=== PATIENT | female | born 1965 | race Asian ===

== ENCOUNTER 2017-10-24 10:53 | Day surgery (SDC) | payer OTHER ==
[~2017-10-24 10:53] MED LIST: Buffered Lidocaine 0.9% SYRIN* 5 ML/SYR SYRINGE INTRADERM ONE; Dexamethasone IV* 4 MG/ML 1 ML (4 MG) IV SLOW PU ONE; Famotidine IV* 10 MG/ML 2 ML (20 mg) IV ONE; Ondansetron ODT TAB* 4 MG PO ONE
[2017-10-24] MEDS ORDERED: ceFAZolin 2 GM PREMIX (*) 2 GM/50 ML BAG IVPB ONE (10:56)
[2017-10-24] MEDS ORDERED: Ondansetron ODT TAB* 4 MG ONE (10:56)
[2017-10-24] MEDS ORDERED: Famotidine IV* 10 MG/ML 2 ML (20 mg) ONE (10:56)
[2017-10-24] MEDS ORDERED: Dexamethasone IV* 4 MG/ML 1 ML (4 MG) ONE (10:57)
[2017-10-24] MEDS ORDERED: Midazolam* 1 MG/ML 5 ML VIAL (5 MG) ONE (11:48)
[2017-10-24] MEDS ORDERED: fentaNYL* 50 MCG/ML 2 ML VIAL (100 MCG VIAL) ONE ×2 (11:48→13:37)
[2017-10-24] MEDS ORDERED: Propofol* 10 MG/ML 20 ML BTL IV PUSH ONE (11:48)
[2017-10-24] MEDS ORDERED: EPINEPHRINE 1 MG/ML 1 ML VIAL ONE (12:43)
[2017-10-24] MEDS ORDERED: ROPIVACAINE 5 MG/ML 30 ML BTL (0.5%) ONE (12:57)
[2017-10-24] MEDS ORDERED: Naloxone* 0.4 MG/ML 1 ML VIAL IV PRN (14:04)
[2017-10-24] MEDS ORDERED: Ondansetron INJ* 2 MG/ML VIAL IV PRN (14:04)
[2017-10-24] MEDS ORDERED: fentaNYL* 50 MCG/ML 2 ML VIAL (100 MCG VIAL) IV PRN (14:04)
[2017-10-24] MEDS ORDERED: HYDROmorphone INJ* 1 MG/ML CARPUJECT SYRINGE IV PRN (14:04)
[2017-10-24] MEDS ORDERED: oxyCODONE/Acetamin 5/325 MG* TAB PO PRN (14:04)
[2017-10-24] MEDS ORDERED: DiMENhydriNATE IV* 50 MG/ML VIAL IV PUSH PRN (14:04)
[2017-10-24 16:34] VITALS: BP 134/86
--- NOTE | 2017-10-28 22:15 | OP ---
DATE OF OPERATION: 10/24/17 - [facility] DATE OF : 69 SURGEON: Delroy Lin MD BUTTON PUNCHER: HARSH Toth. A physician workforce development assistant was required for the length of the procedure for help with positioning, instrumentation, and closure. ANESTHESIOLOGIST: Zach Dumont MD ANESTHESIA: General anesthesia, regional interscalene block anesthesia. PRE-OP DIAGNOSES: 1. Left shoulder adhesive capsulitis, traumatic. 2. Left shoulder subacromial bursitis and subacromial impingement. 3. Left shoulder acromioclavicular joint arthritis. POST-OP DIAGNOSES: 1. Left shoulder adhesive capsulitis, traumatic. 2. Left shoulder subacromial bursitis and minimal subacromial impingement. 3. Left shoulder acromioclavicular joint arthritis. OPERATIVE PROCEDURE: 1. Left shoulder evaluation under anesthesia. 2. Left shoulder manipulation under anesthesia. 3. Left shoulder lysis of adhesions and extensive debridement, capsular release. 4. Left shoulder subacromial decompression, arthroscopic. 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 She sustained an injury at work in January of 2017, 9 months preoperatively. The patient responded insufficiently to nonoperative management and so we opted for surgical management. Preoperatively, we discussed the importance of postoperative physical therapy to maintain the gains we obtained in terms of range of motion. The patient's limited range of motion and shoulder pain continued to significantly limit her preoperatively. I told the patient that as I would be arthroscoping the shoulder, I would assess the biceps, although the biceps was not a clear pain generator in this patient. The patient told me that she would prefer open tenodesis if biceps treatment were required. ANTIBIOTICS: Ancef 2 g IV. IV FLUIDS: 1100 cc crystalloid. SKIN TO SKIN TIME: 62 minutes. ARTHROSCOPIC FLUID USED: 5.5 bags, each with 3 L of saline, for a total of 16.5 L. COMPLICATIONS: None. SPECIMEN: None. IMPLANTS: None. ESTIMATED BLOOD LOSS: Minimal. DESCRIPTION OF PROCEDURE: The patient signed a written consent in the preoperative holding. Operative extremity was marked in the preoperative holding. The patient underwent a regional interscalene nerve block in preoperative holding. The patient was taken back to the operating room and placed on the operating room table, supine. The patient was placed under general anesthesia. A mini time-out was performed. I did an evaluation under anesthesia. The patient's passive range of motion of the shoulder was 150 degrees of forward flexion, 70 degrees of external and 45 degrees of internal rotation. I then did a manipulation under anesthesia using a safe, appropriate technique. The patient's shoulder clearly gained range of motion and there was some palpable crackling about the shoulder consistent with release of capsule. At the end of the manipulation, I remeasured the patient's range of motion as 180 degrees of forward flexion, 100 degrees of external and 90 degrees of internal rotation. The patient was converted into the lateral decubitus position. Axillary roll placed. Nava bag was hardened. All bony prominences padded. Shoulder is placed in longitudinal traction with 10 to 15 pounds. Appropriate forward flexion and abduction of the shoulder. The left shoulder was prepped and draped. Surgical time-out was performed. I entered the left glenohumeral joint from posterior with a spinal needle. I infused 30 cc of normal saline. I then established a posterior glenohumeral joint portal using standard technique. I then started a diagnostic arthroscopy. The patient had no clear rotator cuff tendon tear. I evaluated the subscapularis in a variety of position in the humeral head including posteriorly translated, internally and externally rotated. No supraspinatus tear. There was no clear tear or synovitis about the biceps and no clear superior labrum tear. Likewise, no clear anterior posterior labrum tear. There was a small flap of articular cartilage, partial thickness, linear about the humeral head. The size was in the order of a millimeter or so. I established an anterior glenohumeral joint portal under direct visualization. I next debrided with an arthroscopic shaver, a significant amount of synovitic tissue in the rotator cuff interval anteriorly. I debrided this synovitic tissue back to the undersurface of the coracoid process. I next viewed the glenohumeral joint both from my posterior and from my anterior glenohumeral joint portals. Viewing from anteriorly, allowed me to assess how synovitic the posterior capsule was. Viewing from posterior and anterior, I could tell that the capsule about the inferior aspect of the glenohumeral joint was still intact. I asked for a hook-tipped VAPR electrocautery. I performed a capsulotomy, anteriorly and posteriorly, directly adjacent, directly off the labrum. I was especially careful when working inferiorly given the location of the axillary nerve. I viewed the biceps and superior labrum well, and there was no reason for a release in tenodesis of biceps. I then removed the instruments and fluid from the glenohumeral joint. I next placed posterior and anterior subacromial portals. There was significant bursitis in the subacromial space. I established a lateral subacromial portal. Under direct visualization, I used an arthroscopic shaver to debride much bursitic tissue in the subacromial space. I probed and visualized rotator cuff tendon tear. There was no tendon injury, but there was a small hole noted about the muscle of the rotator cuff tendon. Unclear if this was preexisting or if this was released with some capsule while working in the glenohumeral joint. I placed 1 stitch, side to side, to close down this opening in the rotator cuff tendon muscle, using a #2 permanent suture. I debrided the undersurface of the acromion with a VAPR and then removed 8 mm of the inferior aspect of the anterior acromion with a bur. I did not appreciate a significant amount of synovitic tissue about the AC joint and given that the patient's pathology was primarily subacromial and more so glenohumeral, I decided that the patient did not need a distal clavicle resection. I removed the instruments and fluid from subacromial space. Skin incisions were closed with figure-of-8 and 12 stitches using nylon 4-0 suture. Xeroform, 4x4, ABDs, foam tape. Sling, cooling unit. The patient was awakened and extubated and brought to the PACU. DISPOSITION: The patient was discharged home with Percocet as needed and aspirin, enteric coated, b.i.d. x2 weeks for DVT prophylaxis. The patient is to start physical therapy as soon as possible to start strengthening and range of motion work for that operative shoulder. The patient can wean out of the sling as soon as she likes. Follow up in clinic 10 to 14 days postoperatively and the patient's wound care and instructions were provided in discharge instruction sheets. [id number]/CPS #: [id number] MTDD
== END 2017-10-24 17:38 | disposition home or self-care (01) ==
LOC: OR 10:53
PROVIDERS: ATTEND Orthopaedic Surgery
DX: M75.02 Adhesive capsulitis of left shoulder (principal); M75.51 Bursitis of right shoulder; M75.41 Impingement syndrome of right shoulder; M19.112 Post-traumatic osteoarthritis, left shoulder; G89.18 Other acute postprocedural pain
CPT/HCPCS: 81025; A9270-GY; J0690; J1100; J2250; J2704; J2795; J3010

== ENCOUNTER 2019-02-16 21:06 | Emergency (ER) | payer BC ==
[2019-02-16 23:03] LABS: Urine Appearance Cloudy; Urine Bacteria 1+ (Absent); Urine Bilirubin Negative (Negative); Urine Blood 3+ (Negative); Urine Color Yellow; Urine Glucose Negative (Negative); Urine Ketones Negative (Negative); Urine Nitrite Negative (Negative); Urine Protein 2+(100 mg/dL) (Negative); Urine Red Blood Cell 3+(>10/hpf) (Absent); Urine Specific Gravity 1.009 (1.010-1.030); Urine Squamous Epithelial Cell Present (Absent); Urine Urobilinogen Negative (Negative); Urine White Blood Cell 3+(>20/hpf) (Absent)
[2019-02-17] MEDS ORDERED: Sulfamethox/Trimethoprim DS 800/160* TAB PO ONE (00:12)
[2019-02-17] MEDS ORDERED: Phenazopyridine TAB* 100 MG PO ONE (00:12)
--- NOTE | 2019-02-17 00:12 | ED ---
GI/ HPI - HPI Summary HPI Summary: 53-year-old female presents with dysuria today. She admits to urgency and frequency. No fevers. No flank pain. She has history of uti. Has no medical conditions. Hasn't taking anything for her symptoms. Did try cranberry juice without relief. - History of Current Complaint Chief Complaint: EDUrogenitalProblems Time Seen by Provider: 02/16/19 23:53 Stated Complaint: POSS UTI PER PT Pain Intensity: 0 - Allergy/Home Medications Allergies/Adverse Reactions: Allergies Allergy/AdvReac Type Severity Reaction Status Date / Time Environmental/Seasonal Allergy Sneeze, Uncoded 10/24/17 11:07 Hayfever Itchy Watery Eyes PMH/Surg Hx/FS Hx/Imm Hx Endocrine/Hematology History: Denies: Hx Diabetes Cardiovascular History: Denies: Hx Hypertension, Hx Pacemaker/ICD Respiratory History: Denies: Hx Asthma History: Denies: Hx Renal Disease Musculoskeletal History: Reports: Hx Bursitis - LEFT SHOULDER, Other Musculoskeletal History - 03/06 LEFT SHOULDER INJURY, IMPINGEMENT SYNDROME Sensory History: Reports: Hx Contacts or Glasses - BOTH, WILL WEAR GLASSES DOS Denies: Hx Cataracts, Hx Glaucoma, Hx Hearing Aid Opthamlomology History: Reports: Hx Contacts or Glasses - BOTH, WILL WEAR GLASSES DOS Denies: Hx Cataracts, Hx Glaucoma Psychiatric History: Denies: Hx Panic Disorder - Cancer History Hx Chemotherapy: No Hx Radiation Therapy: No - Surgical History Surgery Procedure, Year, and Place: C SECTION 2004 [facility] [place]. RIGHT KNEE ARTHROSCOPY 07/06 [facility] [place] Hx Anesthesia Reactions: No Infectious Disease History: No Infectious Disease History: Denies: Traveled Outside the [place] in Last 30 Days - Family History Known Family History: Positive: Non-Contributory - Social History Alcohol Use: Weekly Alcohol Amount: 1/DAY Substance Use Type: Reports: None Smoking Status (MU): Never Smoked Tobacco Have You Smoked in the Last Year: No Review of Systems Negative: Fever Negative: Chest Pain Negative: Shortness Of Breath Positive: dysuria, frequency All Other Systems Reviewed And Are Negative: Yes Physical Exam Triage Information Reviewed: Yes Vital Signs On Initial Exam: Initial Vitals Temp Pulse Resp BP Pulse Ox 98.4 F 74 16 159/105 97 02/16/19 21:34 02/16/19 21:34 02/16/19 21:34 02/16/19 21:34 02/16/19 21:34 Vital Signs Reviewed: Yes Appearance: Positive: Well-Appearing Skin: Positive: Warm, Dry Head/Face: Positive: Normal Head/Face Inspection Eyes: Positive: Normal, EOMI, COLE, Conjunctiva Clear ENT: Positive: Normal ENT inspection, Pharynx normal, TMs normal Respiratory/Lung Sounds: Positive: Clear to Auscultation, Breath Sounds Present Cardiovascular: Positive: Normal, RRR Abdomen Description: Positive: Nontender, Soft. Negative: CVA Tenderness (R), CVA Tenderness (L) Bowel Sounds: Positive: Present Musculoskeletal: Positive: Normal Neurological: Positive: Normal Psychiatric: Positive: Normal Diagnostics - Vital Signs Vital Signs Temp Pulse Resp BP Pulse Ox 02/16/19 21:34 98.4 F 74 16 159/105 97 - Laboratory Lab Results: Lab Results 02/16/19 Range/Units 21:41 Urine Color Yellow Urine Appearance Cloudy Urine pH 5.0 (5-9) Ur Specific [place] 1.009 L (1.010-1.030) Urine Protein 2+(100 mg/dl) A (Negative) Urine Ketones Negative (Negative) Urine Blood 3+ A (Negative) Urine Nitrate Negative (Negative) Urine Bilirubin Negative (Negative) Urine Urobilinogen Negative (Negative) Ur Leukocyte Esterase 3+ A (Negative) Urine WBC (Auto) 3+(>20/hpf) A (Absent) Urine RBC (Auto) 3+(>10/hpf) A (Absent) Ur Squamous Epith Cells Present A (Absent) Urine Bacteria 1+ A (Absent) Urine Glucose Negative (Negative) Urine Ascorbic Acid * A (Negative) Lab Statement: Any lab studies that have been ordered have been reviewed, and results considered in the medical decision making process. GIGU Course/Dx - Course Course Of Treatment: 53-year-old female presents with dysuria today. She admits to urgency and frequency. No fevers. No flank pain. She has history of uti. Has no medical conditions. Hasn't taking anything for her symptoms. Did try cranberry juice without relief. On exam nontender abdomen. Negative CVA tenderness. Urine shows UTI. Will place on Bactrim. Gave pyridium for her pain. Patient understands and agrees with plan. - Diagnoses Differential Diagnoses - Female: Pyelonephritis, Urinary Tract Infection, Ureteral Calculi Provider Diagnoses: UTI (urinary tract infection) Discharge ED - Sign-Out/Discharge Documenting (check all that apply): Patient Departure Patient Received Moderate/Deep Sedation with Procedure: No - Discharge Plan Condition: Good Disposition: HOME Prescriptions: Phenazopyridine 200 mg (NF) [Pyridium 200 MG tab *] 200 mg PO TID #5 tab Sulfamethox/Trimethoprim DS* [Bactrim DS 800/160 TAB*] 1 tab PO DAILY #9 tab Patient Education Materials: Urinary Tract Infection in Women (ED) Referrals: Gio Thomas MD [Primary Care Provider] - Additional Instructions: Take Bactrim twice a day for 5 days, first dose given in ED Take pyridium three times a day with food for 2 days, first dose given in ED Follow up with primary in 7 days Return to ED if develop any new or worsening symptoms - Billing Disposition and Condition Condition: GOOD Disposition: Home - Attestation Statements Provider Attestation: I was available for consultation for this patient. I did not evaluate the patient or participate in any medical decision making or disposition decisions unless I am specifically named in the chart as having consulted on the patient. If I have consulted on the patient, please see my own ED note on the patient encounter. Kal Tyler MD
[2019-02-17 01:23] VITALS: BP 140/100
== END 2019-02-17 01:22 | disposition home or self-care (01) ==
LOC: ED 21:06
DX: N39.0 Urinary tract infection, site not specified (principal); Z87.440 Personal history of urinary (tract) infections
CPT/HCPCS: 81003; 81015; 87077; 87086; 87186; 99282; A9270-GY